=== PATIENT | male | born 1950 | race Hispanic/Latino ===

== ENCOUNTER 2017-02-18 07:22 | Day surgery (SDC) | payer OTHER ==
[2017-02-13 08:54] VITALS: BMI 27.3
[2017-02-18 07:56] VITALS: TEMP 98.4
[2017-02-18] MEDS ORDERED: Propofol 10 mg/ml Inj (20 ML) ONE (08:52)
[2017-02-18] MEDS ORDERED: Sodium Chloride 0.9% 1,000 ML IV SCH (10:00)
[2017-02-18 10:33] VITALS: BP 129/79; PULSE 65; RESP 18; O2SAT 96
== END 2017-02-18 11:19 | disposition home or self-care (01) ==
LOC: ENDO 07:22
PROVIDERS: ATTEND Internal Medicine Gastroenterology
DX: Z12.11 Encounter for screening for malignant neoplasm of colon (principal); D12.4 Benign neoplasm of descending colon; K57.30 Diverticulosis of large intestine without perforation or abscess without bleeding; K64.8 Other hemorrhoids; J44.9 Chronic obstructive pulmonary disease, unspecified; F17.210 Nicotine dependence, cigarettes, uncomplicated
CPT/HCPCS: 45380; 88305; J2704; J7040